=== PATIENT | male | born 2000 | race Caucasian/White ===

== ENCOUNTER 2024-09-19 19:38 | Emergency (ER) | payer SELFPAY ==
--- NOTE | 2024-09-19 19:50 | ED.WOUNDLAC ---
HPI - Wound/Laceration General Chief Complaint: Animal Bite Stated Complaint: Dog Bite on Left Thumb Time Seen by Provider: 09/19/24 19:48 Source: patient and family Mode of arrival: ambulatory Limitations: no limitations History of Present Illness HPI narrative: a 24-year-old male that presents with some puncture wounds to his left hand with abrasions to the right palm after his girlfriend's dog bit him. Patient is not up-to-date status is currently no bleeding. There is no numbness or tingling has good range of motion in his hands. Onset (ago): hour(s) Location: other Extremity Location: Right: hand ( Avulsions with puncture wound) Place: home Patient tetanus UTD: No Context: accidental Associated symptoms: none Related Data Allergies Allergy/AdvReac Type Severity Reaction Status Date / Time No Known Allergies Allergy Verified 09/19/24 20:07 Review of Systems Review of Systems: All systems reviewed & are unremarkable except as noted in HPI and below PMFSH Past Medical History Medical History Patient denies medical problems Exam Const: General: healthy appearing and no acute distress Nutritional Appearance: well nourished Orientation/consciousness: patient oriented x3 Neck: Neck: normal visual inspection, no lymphadenopathy and no meningeal signs Chest: Chest palpation & inspection: normal inspection of the chest Resp: Effort & Inspection: normal respiratory effort Auscultation: clear to auscultation bilaterally Cardio: Rate: regular rate Rhythm: regular rhythm Skin: Wounds: wounds noted Neuro: General: patient oriented x3, moves all extremities and no meningeal signs Course Course Emergency Course: puncture wounds to bilateral hands and puncture wound to the anterior left left thumb patient received Dermabond to the puncture wound to the left thumb area and triple antibiotic ointment was applied to wounds, and updated with his tetanus vaccine. Procedures Laceration Laceration 1: Date: 09/19/24 Time: 19:53 Site: upper extremity Side (If applicable): left and right Size (cm): 1 Description: linear and clean Depth: simple, single layer Pre-repair: irrigated extensively ====== Skin Level ====== Skin layer closed with: dermabond ====== Subcutaneous Layer ====== ====== Muscle Layer ====== ====== Tendon Layer ====== Critical Care Time Critical Care Time Critical Care Time: No Discharge Plan Discharge Clinical Impression: Animal bite, Laceration, Puncture wound Patient Disposition: Home, Self-Care Condition: Stable Instructions: Antibiotic Form, Animal Bite (ED), Laceration (ED), Puncture Wound (ED) Additional Instructions: can take Tylenol or Motrin as needed, can use Neosporin to affected areas daily x3 days and take antibiotics as prescribed. Patient Language: German Prescriptions: New amoxicillin-pot clavulanate [Augmentin] 500-125 mg tablet 1 tablet PO TID Qty: 30 0RF Follow-up/Referrals: UNKNOWN,DOCTOR [Primary Care Provider] - Time of Disposition: 20:10
[2024-09-19 19:52] VITALS: BP 159/89; PULSE 74; RESP 18; TEMP 36.8; O2SAT 95
--- OUTSIDE RECORDS SUMMARY | 2024-09-19 20:07 | XMS_ITS | Encounter Summary ---
Author Organization [employer] Address [address] [place] [address] Care Team Providers Care Operating Room Tech Name Role Phone Unavailable Primary Care Provider Unavailabl e Encounter Details Date Type Department Care Team (Latest Contact Info) Description 11/20/2000 Outpatient Historical HIS PATIENT IN A BED Christina Chowdhury MD [address] [place] [phone] Osei Pennington MD [address] [facility] [address] [place] [phone] Other musculoskeletal symptoms referable to limbs(729.89) (Primary Dx) 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
--- OUTSIDE RECORDS SUMMARY | 2024-09-19 20:07 | XMS_ITS | Clinical Summary ---
Author Organization [facility] Address [facility] [place] [address] Care Team Providers Care Mixing Pan Tender Name Role Phone Osei Cancino MD Primary Care Provider +1- [phone] Allergies Active Allergy Reactions Criticality Noted Date Comments Penicillins Hives 11/08/2017 Prednisone Hives 11/08/2017 Ketorolac Tromethamine Hives 11/08/2017 Medications ibuprofen 800 MG tablet Take 1 tablet (800 mg total) by mouth every 8 (eight) hours as needed for Pain. 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 Gender Identity Not on file Sexual Orientation Not on file Last Filed Vital Signs Vital Sign Reading Time Taken Comments Blood Pressure 147/85 11/08/2017 9:52 PM CDT Pulse 107 11/08/2017 9:52 PM CDT Temperature 37.2 C (99 F) 11/08/2017 9:52 PM CDT Respiratory Rate 16 11/08/2017 9:52 PM CDT Oxygen Saturation 99% 11/08/2017 9:52 PM CDT Inhaled Oxygen Concentration - - Weight 116 kg (255 lb 11.7 oz) 11/08/2017 9:52 P M CDT Height 190.5 cm (6' 3 ) 11/08/2017 9:52 PM CDT Body Mass Index 31.96 11/08/2017 9:52 PM CDT Plan of Treatment Health Maintenance Due Date Last Done Comments Annual Physical 2002 HPV Vaccines (1 - Male 3-dos e series) 2014 Hepatitis C 2017 DTaP, Tdap and Td Vaccines ( 1 - Tdap) 2018 Hepatitis B Vaccines (1 of 3 - 19+ 3-dose series) 2018 COVID-19 Vaccine ( - 2023-2 5 season) 2024 Influenza Adult (#1) 2024 Meningococcal B Vaccine Aged Out No l onger eligible based on patient's age to complete this topic Meningococcal Vaccine Aged Out No adrian jovany eligible based on patient's age to complete this topic Pneumococcal Vaccine: Pediat rics (0 to 5 Years) and At-Risk Patients (6 to 64 Years) Aged Out No longer eligible b ased on patient's age to complete this topic RSV Immunizations Under 20 Months Aged Out No longer eligible based on patient's age to complete this topic Insurance [place] [address] Care Teams Mixing Pan Tender Relationship Specialty Start Date End Date Osei Cancino MD [address] [place] [id number] PCP - General INTERNAL MEDICINE 11/09/17
--- OUTSIDE RECORDS SUMMARY | 2024-09-19 20:07 | XMS_ITS | Clinical Summary ---
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
--- OUTSIDE RECORDS SUMMARY | 2024-09-19 20:07 | XMS_ITS | Patient Health Summary ---
Author Organization [facility] Address [address] [place] [address] Care Team Providers Care Neuropsychology Director Name Role Phone Unavailable Primary Care Provider Unavailabl e Note from [facility],non-owned Affiliates and Associated Physician Practices is amultiple site organization consisting of ambulatory clinics and hospital sitesin [place], [place], [place] and [place]. This disclosure is being madepursuant to the Care Everywhere program and may not contain all information available regarding this patient. Last updated 18.[facility] Social History Tobacco Use Types Packs/Day Years Used Date Smoking Tobacco: Never Assessed Sex and Gender Information Value Date Recorded Sex Assigned at Not on file Gender Identity Not on file Sexual Orientation Not on file Procedures * GROSS + MICRO EXAM(Performed 02/25/2004) * GROSS + MICRO EXAM(Performed 06/06/2001) Results * GROSS + MICRO EXAM (02/25/2004 10:45 AM CDT) Only the most recent of2 resultswithin the time period is included. Result CASE NUMBER [id number] [facility] PATH REPORT Comment: ORDERING PHYSICIAN MAO ORELLANA SPECIMEN TYPE Esophagus CLINICAL HISTORY The patient is a 3-year-old boy with a history of abdominal pain who underwent upper endoscopy. GROSS DESCRIPTION The specimen, labeled with the patient's name and esophagus, is received fixed in formalin for gross and microscopic examination and consists of two 2 mm soft, lester-pink tissue fragments submitted in toto as A . MICROSCOPIC DESCRIPTION 3 H/E Sections show fragments of esophageal mucosa. The epithelium shows spongiosis, basal hyperplasia, elongation of papillae, and a mild increase in intraepithelial lymphocytes. The lamina propria contains lymphoid aggregates. (DSB/pg) DIAGNOSIS DIAGNOSIS ESOPHAGUS, BIOPSY - ESOPHAGITIS, MILD. COMMENT The previous esophagus biopsy ([id number]) has been reviewed. The current biopsy shows no significant change in severity of inflammation. The performance characteristics of all immunohistochemical and indirect immunofluorescence stains (if any) cited in this report were determined by the Histopathology Laboratory of [facility] (immunohistochemistry) or the Histology Laboratory of [facility] (indirect immunofluorescence) in compliance with CLIA `88 regulations. Some of these tests rely on the use of analyte-specific reagents and are subject to specific labeling requirements by the FDA. Such tests were developed by the [facility] Laboratory of [facility] or the Histology Laboratory of [facility] and have not been cleared or approved by the FDA. The FDA has determined that such clearance or approval is not necessary. These tests are used for clinical purposes and should not be regarded as investigational or for research. This case has been personally reviewed and interpreted by the attending (teaching) pathologist. Public Health Advisor JEANMARIE PRUITT PATHOLOGIST Elizabeth Reyes M.D. ELECTRONICALLY [facility] MISCELLANEOUS SAMPLES / Unknown 02/25/2004 10:45 AM CDT 02/25/2004 12:01 PM CDT Historical Provider LAB - PATHOLOGY/C YTOLOGY ORDERABLES [facility] PATH REPORT
--- OUTSIDE RECORDS SUMMARY | 2024-09-19 20:07 | XMS_ITS | Encounter Summary ---
Author Organization [facility] Address [address] [place] [address] Care Team Providers Care Merchandise Deliverer Name Role Phone Unavailable Primary Care Provider Unavailabl e Encounter Details Date Type Department Care Team (Late st Contact Info) Description 11/20/2000 Outpatient Historical [facility] Department of Peds at [address] [address] Christina Chowdhury MD 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
--- OUTSIDE RECORDS SUMMARY | 2024-09-19 20:07 | XMS_ITS | Referral Summary ---
Author Organization [facility] Address [address] [facility] [place] [address] Care Team Providers Care Aviation Consultant Name Role Phone Unavailable Primary Care Provider Unavailabl e Source Comments [facility],non-owned Affiliates and Associated Physician Practices is amultiple site organization consisting of ambulatory clinics and hospital sitesin [place], [place], [place] and [place]. This disclosure is being madepursuant to the Care Everywhere program and may not contain all information available regarding this patient. Last updated 18.[facility] Social History Tobacco Use Types Packs/Day Years Used Date Smoking Tobacco: Never Assessed Sex and Gender Information Value Date Recorded Sex Assigned at Not on file Gender Identity Not on file Sexual Orientation Not on file Plan of Treatment Not on file
--- OUTSIDE RECORDS SUMMARY | 2024-09-19 20:07 | XMS_ITS | Encounter Summary ---
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
--- OUTSIDE RECORDS SUMMARY | 2024-09-19 20:07 | XMS_ITS | Encounter Summary ---
Author Organization [employer] Address 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
--- OUTSIDE RECORDS SUMMARY | 2024-09-19 20:07 | XMS_ITS | Clinical Summary ---
Author Organization [facility] Address [address] [place] [address] Care Team Providers Care Manager Rfid Name Role Phone Unavailable Primary Care Provider Unavailabl e Source Comments [facility],non-owned Affiliates and Associated Physician Practices is amultiple site organization consisting of ambulatory clinics and hospital sitesin [place], [place]. This disclosure is being madepursuant to the Care Everywhere program and may not contain all information available regarding this patient. Last updated 18.[facility] Social History Tobacco Use Types Packs/Day Years Used Date Smoking Tobacco: Never Assessed Sex and Gender Information Value Date Recorded Sex Assigned at Not on file Gender Identity Not on file Sexual Orientation Not on file Plan of Treatment Health Maintenance Due Date Last Done Comments HIV SCREENING 2014 HPV VACCINE (1 - Male 3-dose series) 2014 HEPATITIS C SCREENING 06/28/2017 DTAP/TDAP/TD VACCINES (1 - Tdap) 2018 HEPATITIS B VACCINE (1 of 3 - 19+ 3-dose series) 2018 COVID-19 VACCINE (1 - 2023-2 5 season) 2024 INFLUENZA VACCINE (#1) 2024 DEPRESSION SCREENING 08/12/2024 ZOSTER VACCINE (1 of 2) 2049 HIB VACCINE Aged Out No longer eligi ble based on patient's age to complete this topic MENINGOCOCCAL (Group B) VACCINE Aged Out No longer eligible based on patient's age to complete this topic MENINGOCOCCAL VACCINE Aged Out No adrian jovany eligible based on patient's age to complete this topic PNEUMOCOCCAL VACCINE Aged Out No long er eligible based on patient's age to complete this topic
[2024-09-19] MEDS: TETANUS,DIPHTHERIA,AC PERTUSSIS ADULT 0.5 ML (ADACEL) IM (20:08)
[2024-09-19] MEDS: AMOXICILLIN/CLAVULANATE K 875-125 MG TAB 1 TABLET PO (20:08)
--- NOTE | 2024-09-19 20:29 | PC.NURSE ---
areas to both hands cleased with would cleanser and than FRIDA applied with bandaid and pressure drsing to left thumb
[2024-09-19 20:40] VITALS: BP 124/78; PULSE 78; RESP 18; O2SAT 99
== END 2024-09-19 20:40 | disposition home or self-care (01) ==
PROVIDERS: Emergency Provider Emergency Medicine
DX: S61.452A Open bite of left hand, initial encounter (principal); W54.0XXA Bitten by dog, initial encounter; Z23 Encounter for immunization
CPT/HCPCS: 12001; 90471; 90715; 99283; A9270

== ENCOUNTER 2024-12-15 12:54 | Emergency (ER) | payer OTHER, SELFPAY ==
--- NOTE | ~2024-12-15 | XR_ITS ---
XR chest 2V Ordering provider: Meño Colón MD History: 24 years Male with . Chest pain X 1 day . Comparison: None. FINDINGS: MEDIASTINUM: The cardiac silhouette is not enlarged. LUNGS: No infiltrates, effusions or pneumothorax. OTHER: No free air under the diaphragm. IMPRESSION: No acute cardiopulmonary pathology. Reviewed, dictated and finalized at location A.
[2024-12-15 12:54] VITALS: BP 141/98; PULSE 92; RESP 16; TEMP 36; O2SAT 97
--- NOTE | 2024-12-15 13:01 | ED_ITS ---
HPI - Chest Pain General Chief Complaint: Chest Pain Stated Complaint: chest pain Time Seen by Provider: 12/15/24 13:01 Source: patient Mode of arrival: ambulatory Limitations: no limitations History of Present Illness HPI narrative: Patient is a 24-year-old male with left-sided upper chest pain on and off since yesterday. It happened throughout the night while he was resting and then again started up again this afternoon. No shortness of breath. No radiation. No associated nausea. He did have some dizziness. MD complaint: chest pain Pertinent past history: other ( None) Onset (ago): day(s) ( 2) Timing of current episode: episodic Prior episodes: No Onset: during rest Pain location: substernal and left chest Pain radiation: none Severity: mild Pain scale (0-10): 4 Quality: sharp Relieving factors: nothing Exacerbating factors: nothing Context: other ( patient having episodes of chest pain left-sided since yesterday.) Associated symptoms: other ( dizziness) Treatment prior to arrival: none Risk Factors Coronary artery disease risk factors: none Thoracic aortic dissection risk factors: none Related Data Allergies Allergy/AdvReac Type Severity Reaction Status Date / Time ketorolac (From Toradol) Allergy Mild Unknown Verified 12/15/24 13:21 Penicillins Allergy Mild Unknown Verified 12/15/24 13:21 prednisolone Allergy Mild Unknown Verified 12/15/24 13:21 Review of Systems 2 Review of Systems: All systems reviewed & are unremarkable except as noted in HPI and below Constitutional: Constitutional: Reports no additional constitutional complaints Eyes: Eyes: Reports no additional eye complaints ENT: Reports system reviewed and no additional complaints, except as documented Cardiovascular: Cardiovascular: Reports no additional cardiovascular complaints Respiratory: Respiratory: Reports no additional respiratory complaints Gastrointestinal: Gastrointestinal: Reports no additional gastrointestinal complaints Genitourinary: Genitourinary: Reports no additional male genitourinary complaints Musculoskeletal: Musculoskeletal: Reports no additional musculoskeletal complaints Integumentary/Breasts: Skin/Breast: Reports system reviewed and no additional complaints, except as docu Neurologic: Reports system reviewed and no additional complaints, except as documented Psychiatric: Psychiatric: Reports no additional psychiatric complaints Endocrine: Endocrine: Reports no additional endocrine complaints Hematologic/Lymphatic: Hematologic/Lymphatic: Reports no additional hematologic/lymphatic complaints Allergic/Immunologic: Allergic/Immunologic: Reports no additional allergic/immunologic complaints [facility] Past Medical History Medical History Patient denies medical problems Exam 2 Const: General: healthy appearing Nutritional Appearance: well nourished Orientation/consciousness: patient oriented x3 HENMT: Head: normal to inspection Ears: external ears normal F sendy/Nose/Sinus: Normal external nose present Eyes: Conjunctivae: conjunctivae normal Pupils: Equal, round and reactive pupils present EOM: EOMs intact bilaterally Neck: Neck: normal visual inspection Chest: Chest palpation & inspection: normal inspection of the chest Other: tender left anterior chest wall to palpation at the costochondral margins 2 and 3 typically for this patient and reproducible chest pain Resp: Effort & Inspection: normal respiratory effort and not labored A uscultation: clear to auscultation bilaterally and no crackles Cardio: Rate: regular rate Rhythm: regular rhythm Heart sounds: no murmurs GI: Inspection: non-distended GI Palp: Yes Soft to palpation and No Tenderness to palpation present (GI) Auscultation: normal bowel sounds : General: Yes bladder normal to palpation Back/Spine/Pelvis: Back: no CVA tenderness Skin: General skin exam: normal color Rashes: no rashes Wounds: no wounds Neuro: General: patient oriented x3 Cranial nerves: Yes Nystagmus not present Speech: normal speech Extrem: General: normal to inspection Psych: Mental Status: mental status grossly normal Affect: normal affect Attitude: cooperative Course Vital Signs Vital signs: Vital Signs Temperature 36.0 C L 12/15/24 12:54 Pulse Rate 92 12/15/24 12:54 Respiratory Rate 16 12/15/24 12:54 Blood Pressure 141/98 H 12/15/24 12:54 Pulse Oximetry 97 12/15/24 12:54 Oxygen Delivery Room Air 12/15/24 12:54 Temperature 36.0 C L 12/15/24 12:54 Pulse Rate 93 12/15/24 13:09 Respiratory Rate 16 12/15/24 12:54 Blood Pressure 141/98 H 12/15/24 12:54 Pulse Oximetry 97 12/15/24 12:54 Oxygen Delivery Room Air 12/15/24 13:02 MDM - Chest Pain MDM Narrative Medical decision making narrative: patient is a 24-year-old male with chest pain. Will do a cardiac workup at this time. pain is atypical in nature and reproducible. Lab Data Attestation: I reviewed the patient's lab results. 12/15/24 13:16 12/15/24 13:16 Labs: Lab Results 12/15/24 Range/Units 13:16 WBC 5.5 (4.8-10.8) K/mm3 RBC 5.92 (4.70-6.10) M/mm3 Hgb 17.5 (14.0-18.0) g/dL Hct 50.1 (40.0-54.0) % MCV 84.6 (78.0-102.0) fL MCH 29.6 (27.0-31.0) pg MCHC 34.9 (32-36) g/dL RDW 12.0 (11.6-14.4) % Plt Count 188 (150-420) K/mm3 MPV 10.0 (8.7-11.0) fl Immature Gran % (Auto) 0.4 H (0.0-0.0) % Neut % (Auto) 57.2 (50.0-70.0) % Lymph % (Auto) 31.0 (18.0-42.0) % [place] % (Auto) 5.1 (2.0-11.0) % Eos % (Auto) 5.6 (1.0-6.0) % Baso % (Auto) 0.7 (0.0-1.0) % Lymph # (Auto) 1.70 (1.10-4.50) K/mm3 [place] # (Auto) 0.28 (0.10-0.90) K/mm3 Eos # (Auto) 0.31 (0.02-0.50) K/mm3 Baso # (Auto) 0.04 (0.00-0.10) K/mm3 Abs Immat Gran (auto) 0.02 H (0.00-0.00) K/mm3 Absolute Neuts (auto) 3.14 (1.70-7.20) K/mm3 Absolute Nucleated RBC 0.00 (0.00-0.00) K/mm3 Nucleated RBC % 0.0 (0-0.0) % PT 10.9 (9.50-12.1) Seconds INR 1.0 APTT 30.2 (23.9-30.70) Sec D-Dimer 0.19 (0.19-0.50) mg/L Sodium 138 (136-145) mmol/L Potassium 3.6 (3.5-5.1) mmol/L Chloride 102 (98-108) mmol/L Carbon Dioxide 28 (21-32) mmol/L Anion Gap 8 (4-12) mmol/L BUN 13 (7-18) mg/dL Creatinine 1.22 (0.70-1.30) mg/dL Estim Creat Clear Calc 112 ml/min Estimated GFR > 60 (59 - ) Glucose 125 H (70-99) mg/dL Calculated Osmolality 287 (285-295) mOsm/kg Calcium 8.7 (8.5-10.1) mg/dL Total Bilirubin 1.0 (0.00-1.00) mg/dL AST 16 (15-37) U/L ALT 44 (16-63) U/L Alkaline Phosphatase 109 (46-116) U/L Troponin I 5.0 (0.00-60.4) ng/L NT-Pro-B Natriuret Pep < 11 (0-125) pg/mL Total Protein 6.8 (6.4-8.2) g/dL Albumin 3.7 (3.4-5.0) g/dL Lipase 41 (16-77) U/L Imaging Data Attestation: I personally reviewed and interpreted this imaging study as follows: Radiologist's impression: Chest x-ray is negative for acute process ECG Data EKG #1: Attestation: I personally reviewed and interpreted this ECG as follows: ECG completion date: 12/15/24 ECG completion time: 13:43 EKG Interpretation: normal rate, sinus rhythm, non-specific ST changes ( T-wave inversions lead 3 and AVF (inferior)), normal QRS, normal QT and NL axis Discharge Plan Discharge Clinical Impression: Atypical chest pain, Acute costochondritis Patient Disposition: Home Condition: Stable Instructions: Costochondritis (ED) Additional Instructions: please follow-up with primary doctor in the next week. Showed the EKG to the primary doctor and they may consider further cardiac outpatient workup. At this time however, it appears that this is musculoskeletal in nature. Patient Language: Swedish Prescriptions: No Action amoxicillin-pot clavulanate [Augmentin] 500-125 mg tablet 1 tablet PO TID Qty: 30 0RF Follow-up/Referrals: Jovan Chang MD [Primary Care Provider] - Time of Disposition: 14:13
--- NOTE | 2024-12-15 13:08 | ECG_ITS ---
Test Date: 2024-12-15 13:04:42 Measurements Intervals [place] Rate: 85 P: 86 NE: 167 QRS: 85 QRSD: 102 T: -28 QT: 349 QTc: 417 Interpretive Statements SINUS RHYTHM NONSPECIFIC ST AND T-WAVE ABNORMALITY No previous ECG available for comparison Electronically Signed On 12-15-2024 14:15:05 CDT by Adonis Smyth M.D.
[2024-12-15 13:09] VITALS: PULSE 93
--- OUTSIDE RECORDS SUMMARY | 2024-12-15 13:12 | XMS_ITS | Clinical Summary ---
Author Organization [facility] [address] Address [address] [place] [address] Care Team Providers Care Outboard Motors Experimental Mechanic Name Role Phone Franco Galloway MD Primary Care Provi giles Allergies Active Allergy Reactions Criticality Noted Date Comments Penicillins Hives Medium 07/01/2022 Prednisone Hives Medium 11/08/2017 Ketorolac Vomiting Low 07/01/2022 Medications ibuprofen (ADVIL,MOTRIN) 800 mg tablet Take 1 tablet (800 mg total) by mouth 3 (three) times a day as needed for pain 20 tablet 07/02/2022 Active dexmethylphenid ate XR (FOCALIN XR) 30 mg 24 hr capsule Take 1 capsule (30 mg total) by mouth daily 30 capsule 03/27/2023 Active sertraline (ZOLOFT) 100 mg tabletIndicatio ns:Obsessive-Co mpulsive Disorder Take 1 tablet (100 mg total) by mouth daily 90 tablet 3 03/27/2023 Active cariprazine (Vraylar) 3 mg capsule capsuleIndicati ons:Depression associated with Bipolar Disorder Take 1 capsule (3 mg total) by mouth daily 30 capsule 1 03/27/2023 Active Active Problems Problem Noted Date Diagnosed Date 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 Continue with spec wear, still interested in toric IOLs, awaiting approval for surgery. Hyperopia of both eyes with astigmatism 05/29/20 19 Assessment & Plan (05/29/2019 12:23 PM CDT): Significant astigmatism ou. Excellent vision with spec rx, minimal change in refraction compared to current spec rx. Can continue real time analyst spec wear with current rx or updated rx given today. Remainder of exam WNL. Follow up as needed for intraocular lens (IOL) procedure. Immunizations Immunization Administration Dates Next Due DTP 11/06/2000,02/01/2000,1999 ,1999 DTaP 03/15/2005 HPV, Quadrivalent 10/20/2013 HPV9 04/16/2017 Hep A, Pediatric 04/16/2017 Hep B / HiB 07/15/2000,1999,1999 IPV 03/15/2005,07/15/2000,1999 ,1999 Influenza, Unspecified 01/30/2023(Deferr ed: Patient Refused),01/30/2023(Deferred: Patient Refused),11/27/2022(Deferred: Patient Refused),11/27/2022(Deferred: Patient Refused),10/11/2022(Deferred: Patient Refused) MMR 03/15/2005,11/06/2000 Meningococcal MCV4P (Menactra) 04/16/2017 Pneumococcal Conjugate 7-Valent 07/25/2000,06/07,02/01/2000 Varicella 10/20/2013,07/15/2000 Surgical History Surgery Date Site/Laterality Comments APPENDECTOMY Medical History Medical History Date Comments ADHD (attention deficit hyperactivity disorder) OCD (obsessive compulsive disorder) Depression Family History Medical History Relation Name Comments Sleep apnea Brother Sleep apnea Father No Known Problems Mother No Known Problems Sister Relation Name Status Comments Brother Alive Father Alive Mother Alive Sister Alive Social History Tobacco Use Types Packs/Day Years Used Date Smoking Tobacco: Never Passive Smoke Exposure: Never Smokeless Tobacco: Never Tobacco Cessation:Counseling Given: Not Answered Alcohol Use Standard Drinks/Week Comments Not Currently 0 (1 standard drink = 0.6 oz pur e alcohol) PHQ-2 Answer Date Recorded PHQ-2 Total Score (If total score is 3 or more points, staff should administer the PHQ-9) 0 10/11/2022 Personal Safety Answer Date Recorded Getting School Help Needed Not on file 12/10 Sex and Gender Information Value Date Recorded Sex Assigned at Not on file 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 Gender Identity Not on file Sexual Orientation Not on file Obstetrics History Last Filed Vital Signs Vital Sign Reading Time Taken Comments Blood Pressure 138/76 11/28/2022 11:30 PM CDT Pulse 86 11/28/2022 11:30 PM CDT Temperature 36.6 C (97.8 F) 11/28/2022 8:55 PM CDT Respiratory Rate 16 11/28/2022 11:30 PM CDT Oxygen Saturation 96% 11/28/2022 11:30 PM CDT Inhaled Oxygen Concentration - - Weight 105.7 kg (233 lb) 03/27/2023 2:40 PM CDT Height 190.5 cm (6' 3 ) 03/27/2023 2:40 PM CDT Body Mass Index 29.12 03/27/2023 2:40 PM CDT Plan of Treatment Health Maintenance Due Date Last Done Comments DTaP/Tdap/Td Vaccine (6 - Tdap) 2010 03/15/2005, 11/06/2000, 02/01/2000, Additional history exists Depression Screening 10/12/2023 10/11/2022, 09/27/19 23 Regular Well Visit/Exam 18-64 10/12/2023 10/11/2022 Covid-19 Vaccine ( season) 2024 08/22/2021 Influenza Vaccine (Season Ended) 2025 Hepatitis B Screening Completed 07/15/2000 , 1999, 1999 Pneumococcal vaccine <65 Aged Out 000, 06/07/2000, 02/01/2000 No longer eligible based on patient's age to complete this topic Varicella Vaccines Completed 10/20/2013, 07/15/2000 HPV Vaccines Completed 04/16/2017, 10/20/2013 Hepatitis C Screening Completed 12/04/2022 Procedures Procedure Name Priority Date/Time Associated Diagnosis Comments HEPATITIS PANEL, ACUTE Routine 12/04/2022 5:49 PM CDT Exposure to sexually transmitted disease (STD) from Last 3 Months or Most Recently Relevant to Health Maintenance Results * Hepatitis panel, acute (12/04/2022 5:49 PM CDT) Hep A IgM Nonreactive Nonreactive [facility] Comment: Interpretive Data: If Hep A IgM Ab is reported as Equivocal, a new sample should be drawn in two weeks for testing. Current interpretive data was last revised on 19. Hep B core IgM Nonreactive Nonreactive [facility] Comment: Interpretive Data If HepB Core IgM Ab is reported as Equivocal, a new sample should be drawn in two weeks for testing. Current interpretive data was last revised on 19. Hep C Ab Nonreactive Nonreactive [facility] Comment: Interpretive Data Nonreactive: Antibodies to HCV not detected. Does NOT exclude the possibility of recent exposure to HCV. Equivocal: Equivocal for HCV antibodies. Supplemental molecular testing will be automatically performed to determine infection status in accordance with current CDC screening recommendations. Reactive: Positive for HCV antibodies. This may represent current or past HCV infection. Supplemental molecular testing will be automatically performed to determine current infection status in accordance with current CDC screening recommendations. Interpretive data was last revised on 2019. HepBsAg Nonreactive Nonreactive [facility] Blood 12/04/2022 5:49 PM CDT 12/04/2022 8:29 PM CDT us Franco Galloway MD LAB MICROBIOLOGY - GENERAL ORDERABLES Final Result [facility] [address] [facility] [facility] Department [place] [address] from Last 3 Months or Most Recently Relevant to Health Maintenance Insurance [employer] [place] [address] [place] [address] [facility] MEDICARE Care Teams Outboard Motors Experimental Mechanic Relationship Specialty Start Date End Date Franco Galloway MD [address] [address] PCP - General Family Medicine 09/24/22
--- OUTSIDE RECORDS SUMMARY | 2024-12-15 13:12 | XMS_ITS | Encounter Summary ---
Author Organization [facility] Address 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
--- OUTSIDE RECORDS SUMMARY | 2024-12-15 13:12 | XMS_ITS | Clinical Summary ---
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 Gender Identity Not on file Sexual Orientation [...] - 19+ 3-dose series) 2018 COVID-19 Vaccine (1 - 2023-2 5 season) 2024 Meningococcal B Vaccine Aged Out No l onger eligible based on patient's age to complete this topic Meningococcal Vaccine Aged Out No adrian jovany eligible based on patient's age to complete this topic Pneumococcal Vaccine: Pediat rics (0 to 5 Years) and At-Risk Patients (6 to 49 Years) Aged Out No longer eligible b ased on patient's age to complete this topic RSV Immunizations Under 20 Months Aged Out No longer eligible based on patient's age to complete this topic Insurance MEDICAID Care Teams Flanging Roll Operator Relationship Specialty Start Date End Date Osei Cancino MD [address] [place] [id number] PCP - General INTERNAL MEDICINE 11/09/17
--- OUTSIDE RECORDS SUMMARY | 2024-12-15 13:12 | XMS_ITS | Clinical Summary ---
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
--- OUTSIDE RECORDS SUMMARY | 2024-12-15 13:12 | XMS_ITS | Encounter Summary ---
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
--- OUTSIDE RECORDS SUMMARY | 2024-12-15 13:12 | XMS_ITS | Encounter Summary ---
Author Organization [facility] Address 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
--- OUTSIDE RECORDS SUMMARY | 2024-12-15 13:12 | XMS_ITS | Referral Summary ---
Author Organization [facility] [address] Address [address] [place] [address] Care Team Providers Care Recruitment Consultant Name Role Phone Franco Galloway MD Primary [...] compared to current spec rx. 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 Current interpretive data was last revised on 19. Hep B core IgM Nonreactive Nonreactive [facility] Comment: Interpretive Data If HepB Core IgM Ab is reported as Equivocal, a new sample should be drawn in two weeks for testing. Current interpretive data was last revised on 19. Hep C Ab Nonreactive Nonreactive [facility] Comment: Interpretive Data Nonreactive: Antibodies to HCV [...] last revised on 2019. HepBsAg Nonreactive Nonreactive [facility] Blood 12/04/2022 5:49 PM CDT 12/04/2022 8:29 PM CDT us Franco Galloway MD LAB MICROBIOLOGY - GENERAL ORDERABLES Final Result [facility] [address] [facility] Department [place] [address] from Last 3 Months or Most Recently Relevant to [place] [address] MEDICARE [facility] MEDICARE Care Teams Recruitment Consultant Relationship Specialty Start Date End Date Franco Galloway MD [address] [place] [address] PCP - General Family Medicine 09/24/22
--- OUTSIDE RECORDS SUMMARY | 2024-12-15 13:12 | XMS_ITS | Clinical Summary ---
Author Organization [facility] Address [address] [place] [address] Care Team Providers Care Tie Layer Name Role Phone Unavailable Primary Care Provider Unavailabl e Source Comments [facility]non-owned Affiliates and Associated Physician Practices is amultiple site organization consisting of ambulatory clinics and hospital sitesin [place], [place], [place] and [place]. This disclosure is being madepursuant to the Care Everywhere program and may not contain all information available regarding this patient. Last updated 18.[facility] 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:40 AM UNIVERSITY ARCHIVIST Gender Identity Not on file Sexual Orientation Not on file Plan of Treatment Health Maintenance Due Date Last Done Comments HIV SCREENING 2014 HPV VACCINE (1 - Male 3-dose series) 2014 HEPATITIS C SCREENING 06/28/2017 DTAP/TDAP/TD VACCINES (1 - Tdap) 2018 HEPATITIS B VACCINE (1 of 3 - 19+ 3-dose series) 2018 COVID-19 VACCINE (1 - 2023-2 5 season) 2024 DEPRESSION SCREENING 08/12/2024 INFLUENZA VACCINE (Season Ended) 2025 ZOSTER VACCINE (1 of 2) 2049 HIB VACCINE Aged Out No longer eligi ble based on patient's age to complete this topic MENINGOCOCCAL (Group B) VACC INE SHARED DECISION-MAKING Aged Out No longer eligibl e based on patient's age to complete this topic MENINGOCOCCAL GROUPS A/C/Y/W VACCINE Aged Out No longer eligible b ased on patient's age to complete this topic PNEUMOCOCCAL VACCINE Aged Out No long er eligible based on patient's age to complete this topic
--- OUTSIDE RECORDS SUMMARY | 2024-12-15 13:12 | XMS_ITS | Encounter Summary ---
Author Organization [employer] Address [address] [place] [address] Care Team Providers Care Sounding Device Operator Name Role Phone Unavailable Primary Care Provider Unavailabl e Encounter Details Date Type Department Care Team (Latest Contact Info) Description 11/20/2000 Outpatient Historical HIS PATIENT IN A BED Christina Chowdhury MD [address] [place] [address] Osei Pennington MD [address] [facility] [address] [place] [phone] Other musculoskeletal symptoms referable to limbs(729.89) (Primary Dx) 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
[2024-12-15 13:22] LABS: Basophils Absolute Auto 0.04 K/mm3 (0.00-0.10); Basophils Percent Auto 0.7 % (0.0-1.0); Eosinophils Absolute Auto 0.31 K/mm3 (0.02-0.50); Eosinophils Percent Auto 5.6 % (1.0-6.0); Hematocrit 50.1 % (40.0-54.0); Hemoglobin 17.5 g/dL (14.0-18.0); Immature Granulocyte Absolute 0.02 K/mm3 (0.00-0.00); Immature Granulocyte Percent A 0.4 % (0.0-0.0); Mean Corpuscular HGB Conc 34.9 g/dL (32-36); Mean Corpuscular Hemoglobin 29.6 pg (27.0-31.0); Mean Corpuscular Volume 84.6 fL (78.0-102.0); Monocytes Absolute Auto 0.28 K/mm3 (0.10-0.90); Monocytes Percent Auto 5.1 % (2.0-11.0); Neutrophils Absolute Auto 3.14 K/mm3 (1.70-7.20); Neutrophils Percent Auto 57.2 % (50.0-70.0); Platelet Count Result 188 K/mm3 (150-420); Red Blood Count 5.92 M/mm3 (4.70-6.10); White Blood Count 5.5 K/mm3 (4.8-10.8)
[2024-12-15 13:37] LABS: D Dimer 0.19 mg/L (0.19-0.50); Partial Thromboplastin Time 30.2 Sec (23.9-30.70); Prothrombin Time 10.9 Seconds (9.50-12.1)
[2024-12-15 13:39] VITALS: BP 125/79; PULSE 86; RESP 18; O2SAT 95
[2024-12-15 13:45] LABS: Alanine Aminotransferase 44 U/L (16-63); Albumin Level 3.7 g/dL (3.4-5.0); Alkaline Phosphatase 109 U/L (46-116); Anion Gap 8 mmol/L (4-12); Aspartate Amino Transferase 16 U/L (15-37); Blood Urea Nitrogen 13 mg/dL (7-18); Calcium 8.7 mg/dL (8.5-10.1); Carbon Dioxide 28 mmol/L (21-32); Chloride 102 mmol/L (98-108); Estimated CRCL calculation 112 ml/min; Estimated Glomerular Filt Rate > 60; Glucose 125 mg/dL (70-99); Lipase 41 U/L (16-77); NT Pro B Type Natriuretic Pept < 11 pg/mL (0-125); Osmolality Calculated 287 mOsm/kg (285-295); Potassium 3.6 mmol/L (3.5-5.1); Sodium 138 mmol/L (136-145); Total Protein 6.8 g/dL (6.4-8.2)
[2024-12-15 13:46] VITALS: BP 115/86; PULSE 84; RESP 18; O2SAT 95
--- OUTSIDE RECORDS SUMMARY | 2024-12-15 13:46 | XMS_ITS | Encounter Summary ---
Author Organization [employer] Address [address] [place] [address] Care Team Providers Care Burglar Alarm Inspector Name Role Phone Unavailable Primary Care Provider Unavailabl e Encounter Details Date Type Department Care Team (Latest Contact Info) Description 11/20/2000 Outpatient Historical HIS PATIENT IN A BED Christina Chowdhury MD [address] [place] [address] Oesi Pennington MD [address] [facility] [address] [place] [phone] Other musculoskeletal symptoms referable to limbs(729.89) (Primary Dx) 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:[address] COMMANDER Gender Identity Not on file Sexual Orientation Not on file documented as of this encounter Plan of Treatment Not on file documented as of this encounter Visit Diagnoses Diagnosis Other musculoskeletal symptoms referable to limbs(729.89)- Primary Other musculoskeletal symptoms referable to limbs documented in this encounter
--- OUTSIDE RECORDS SUMMARY | 2024-12-15 13:46 | XMS_ITS | Encounter Summary ---
Author Organization [employer] Address 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
--- OUTSIDE RECORDS SUMMARY | 2024-12-15 13:46 | XMS_ITS | Encounter Summary ---
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
--- OUTSIDE RECORDS SUMMARY | 2024-12-15 13:46 | XMS_ITS | Clinical Summary ---
Author Organization [facility] [address] Address [address] [address] Care Team Providers Care Proctologist Name Role Phone Franco Galloway MD Primary [...] compared to current spec rx. 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 Current interpretive data was last revised on 19. Hep B core IgM Nonreactive Nonreactive [facility] Comment: Interpretive Data If HepB Core IgM Ab is reported as Equivocal, a new sample should be drawn in two weeks for testing. Current interpretive data was last revised on 19. Hep C Ab Nonreactive Nonreactive [facility] Comment: Interpretive Data Nonreactive: Antibodies to HCV [...] last revised on 2019. HepBsAg Nonreactive Nonreactive [facility] Blood 12/04/2022 5:49 PM CDT 12/04/2022 8:29 PM CDT us Franco Galloway MD LAB MICROBIOLOGY - GENERAL ORDERABLES Final Result [facility] [address] [facility] [place] [address] from Last 3 Months or Most Recently Relevant to Health Maintenance Insurance [employer] [place]IC[place] [address] [facility] MEDICARE Care Teams Proctologist Relationship Specialty Start Date End Date Franco Galloway MD [address] [address] PCP - General Family Medicine 09/24/22
--- OUTSIDE RECORDS SUMMARY | 2024-12-15 13:46 | XMS_ITS | Clinical Summary ---
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
--- OUTSIDE RECORDS SUMMARY | 2024-12-15 13:46 | XMS_ITS | Referral Summary ---
Author Organization [facility] [address] Address [address] [place] [address] Care Team Providers Care Core Analyst Name Role Phone Franco Galloway MD Primary [...] to current spec rx. 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
--- OUTSIDE RECORDS SUMMARY | 2024-12-15 13:46 | XMS_ITS | Clinical Summary ---
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
--- OUTSIDE RECORDS SUMMARY | 2024-12-15 13:46 | XMS_ITS | Encounter Summary ---
Author Organization [facility] Address [address] [place] [address] Care Team Providers Care Clock Assembler Name Role Phone Unavailable Primary Care Provider Unavailabl e Encounter Details Date Type Department Care Team (Late st Contact Info) Description 11/20/2000 Outpatient Historical [facility] Department of Peds at [address] [address] Christina Chowdhury MD [facility] [place] [address] 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:20 AM STABLEHAND Gender Identity Not on file Sexual Orientation Not on file documented as of this encounter Plan of Treatment Not on file documented as of this encounter Visit Diagnoses Not on filedocumented in this encounter
--- OUTSIDE RECORDS SUMMARY | 2024-12-15 13:46 | XMS_ITS | Clinical Summary ---
Author Organization [facility] Address [address] [place] [address] Care Team Providers Care Contingents Supervisor Name Role Phone Unavailable Primary Care Provider Unavailabl e Source Comments [facility],non-owned Affiliates and Associated Physician Practices is amultiple site organization consisting of ambulatory clinics and hospital sitesin [place], [place], [place] and [place]. This disclosure is being madepursuant to the Care Everywhere program and may not contain all information available regarding this patient. 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
[2024-12-15 14:01] VITALS: BP 116/80; PULSE 77; RESP 21; O2SAT 96
== END 2024-12-15 14:25 | disposition home or self-care (01) ==
PROVIDERS: Emergency Provider Emergency Medicine; PCP Family Medicine
DX: M94.0 Chondrocostal junction syndrome [Tietze] (principal)
CPT/HCPCS: 36415; 71046; 80053; 83690; 83880; 84484; 85025; 85380; 85610; 85730; 93005; 99284

== ENCOUNTER 2024-12-29 09:35 | Emergency (ER) | payer OTHER, SELFPAY ==
[2024-12-29 09:35] VITALS: BP 155/87; PULSE 108; RESP 18; TEMP 35.2; O2SAT 100; O2SAT 96
--- OUTSIDE RECORDS SUMMARY | 2024-12-29 09:47 | XMS_ITS | Encounter Summary ---
Author Organization [employer] Address 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
--- OUTSIDE RECORDS SUMMARY | 2024-12-29 09:47 | XMS_ITS | Clinical Summary ---
Author Organization [facility] Address [facility] [place] [address] Care Team Providers Care Cafe Or Restaurant Manager Name Role Phone Osei Cancino MD Primary Care Provider +1- [phone] Allergies Active Allergy Reactions Criticality Noted Date [...] on file Legal Sex Male 8:56 PM RN IV THERAPY Gender Identity Not on file Sexual Orientation [...] complete this topic Insurance MEDICAID Care Teams Cafe Or Restaurant Manager Relationship Specialty Start Date End Date Osei Cancino MD [address] [place] [address] PCP - General INTERNAL MEDICINE 11/09/17
--- OUTSIDE RECORDS SUMMARY | 2024-12-29 09:47 | XMS_ITS | Encounter Summary ---
Author Organization [employer] Address [address] [place] [address] Care Team Providers Care Superintendent Transmission Name Role Phone Unavailable Primary Care Provider Unavailabl e Encounter Details Date Type Department Care Team (Latest Contact Info) Description 11/20/2000 Outpatient Historical HIS PATIENT IN A BED Christina Chowdhury MD [address] [place] [address] Osei Pennington MD [address] [facility] [address] [place] [phone] Other musculoskeletal symptoms referable to limbs(729.89) (Primary Dx) 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
--- OUTSIDE RECORDS SUMMARY | 2024-12-29 09:47 | XMS_ITS | Clinical Summary ---
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
--- OUTSIDE RECORDS SUMMARY | 2024-12-29 09:47 | XMS_ITS | Clinical Summary ---
Author Organization [facility] [address] Address [address] [place] [address] Care Team Providers Care Dental Associate Name Role Phone Franco Galloway MD Primary [...] compared to current spec rx. 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 Current interpretive data was last revised on 19. Hep B core IgM Nonreactive Nonreactive [facility] Comment: Interpretive Data If HepB Core IgM Ab is reported as Equivocal, a new sample should be drawn in two weeks for testing. Current interpretive data was last revised on 19. Hep C Ab Nonreactive Nonreactive [facility] Comment: Interpretive Data Nonreactive: Antibodies to HCV [...] last revised on 2019. HepBsAg Nonreactive Nonreactive [facility] Blood 12/04/2022 5:49 PM CDT 12/04/2022 8:29 PM CDT us Franco Galloway MD LAB MICROBIOLOGY - GENERAL ORDERABLES Final Result [facility] [address] [facility] [place] [address] from Last 3 Months or Most Recently Relevant to Health Maintenance Insurance IDPA [place]IC[place] [address] [facility] MED[facility] Care Teams Dental Associate Relationship Specialty Start Date End Date Franco Galloway MD [address] [address] PCP - General Family Medicine 09/24/22
--- OUTSIDE RECORDS SUMMARY | 2024-12-29 09:47 | XMS_ITS | Clinical Summary ---
Author Organization [facility] Address [address] [place] [address] Care Team Providers Care Ground School Instructor Name Role Phone Unavailable Primary Care Provider Unavailabl e Source Comments [facility],non-owned Affiliates and Associated Physician Practices is amultiple site organization consisting of ambulatory clinics and hospital sitesin [place], [place], [place] and [place]. This disclosure is being madepursuant to the Care Everywhere program and may not contain all information available regarding this patient. 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
--- OUTSIDE RECORDS SUMMARY | 2024-12-29 09:47 | XMS_ITS | Encounter Summary ---
Author Organization 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
--- OUTSIDE RECORDS SUMMARY | 2024-12-29 09:47 | XMS_ITS | Referral Summary ---
Author Organization [facility] [address] Address [address] [place] [address] Care Team Providers Care Biology Instructor Name Role Phone Franco Galloway MD Primary [...] compared to current spec rx. 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 Address: [address] [address] [place] [address] [facility] MEDIC[facility] Care Teams Biology Instructor Relationship Specialty Start Date End Date Franco Galloway MD [address] [place] [address] PCP - General Family Medicine 09/24/22
--- OUTSIDE RECORDS SUMMARY | 2024-12-29 09:47 | XMS_ITS | Encounter Summary ---
Author Organization [facility] Address [address] [place] [address] Care Team Providers Care Geological Survey Field Assistant Name Role Phone Unavailable Primary Care Provider Unavailabl e Encounter Details Date Type Department Care Team (Late st Contact Info) Description 11/20/2000 Outpatient Historical [facility] Department of Peds at [address] [address] Christina Chowdhury MD [facility] 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
--- NOTE | 2024-12-29 09:48 | ED.GENADULT ---
HPI - General Adult General Chief complaint: Upper Respiratory Infection Stated complaint: throat Time Seen by Provider: 12/29/24 09:42 Source: patient Mode of arrival: ambulatory Limitations: no limitations History of Present Illness HPI narrative: patient is a 24-year-old male with significant past medical history that presents today with URI symptoms. Patient says have cough, congestion, rhinorrhea for the last 3 days. He says he also has a sore throat and feels that his throat was closing in on. He denies any nausea vomiting and TORRI other symptoms. Denies any fevers. Onset (ago): minute(s) Location: face ( Bilateral ears) Severity: moderate Severity scale (1-10): 5 Quality: aching Pain Consistency: constant Relieving factors: none Exacerbating factors: none Associated symptoms: cough Treatments prior to arrival: none Related Data Allergies Allergy/AdvReac Type Severity Reaction Status Date / Time ketorolac (From Toradol) Allergy Mild Unknown Verified 12/29/24 09:39 Penicillins Allergy Mild Unknown Verified 12/29/24 09:39 prednisolone Allergy Mild Unknown Verified 12/29/24 09:39 Review of Systems Review of Systems: All systems reviewed & are unremarkable except as noted in HPI and below Constitutional: Constitutional: Reports as per HPI Eyes: Eyes: Reports as per HPI ENT: Reports as per HPI Comments: bilateral otitis media Cardiovascular: Cardiovascular: Reports no additional cardiovascular complaints Respiratory: Respiratory: Reports no additional respiratory complaints Gastrointestinal: Gastrointestinal: Reports no additional gastrointestinal complaints Genitourinary: Genitourinary: Reports no additional male genitourinary complaints Musculoskeletal: Musculoskeletal: Reports no additional musculoskeletal complaints Integumentary/Breasts: Skin/Breast: Reports system reviewed and no additional complaints, except as docu Neurologic: Reports system reviewed and no additional complaints, except as documented Psychiatric: Psychiatric: Reports no additional psychiatric complaints Endocrine: Endocrine: Reports no additional endocrine complaints Hematologic/Lymphatic: Hematologic/Lymphatic: Reports no additional hematologic/lymphatic complaints Allergic/Immunologic: Allergic/Immunologic: Reports no additional allergic/immunologic complaints [facility] Past Medical History Medical History Patient denies medical problems Exam Const: General: healthy appearing Nutritional Appearance: well nourished Orientation/consciousness: patient oriented x3 HENMT: Head: normal to inspection Ears: Abnormal EAC present and TM abnormal Face/Nose/Sinus: Normal external nose present Face and sinus: normal facial exam Mouth: Yes Normal oral and palatal mucosa present Teeth and gingiva: dentition normal Other: erythematous posterior oropharynx, bilateral otitis media Eyes: Conjunctivae: conjunctivae normal Pupils: Equal, round and reactive pupils present EOM: EOMs intact bilaterally Neck: Neck: normal visual inspection Chest: Chest palpation & inspection: normal inspection of the chest Resp: Effort & Inspection: normal respiratory effort Auscultation: clear to auscultation bilaterally Cardio: Rate: regular rate Rhythm: regular rhythm Heart sounds: Murmur heart sound present GI: GI Palp: Yes Soft to palpation Urinary Catheter: Urinary Catheter: patent and draining Back/Spine/Pelvis: Back: no CVA tenderness Cervical Spine: collar present Skin: General skin exam: normal color Rashes: no rashes Wounds: no wounds Neuro: General: patient oriented x3 Cranial nerves: Yes Nystagmus not present Speech: normal speech Extrem: General: normal to inspection Psych: Mental Status: mental status grossly normal Affect: normal affect Attitude: cooperative Course Vital Signs Vital signs: Vital Signs Temperature 95.4 F L 12/29/24 09:35 Pulse Rate 108 H 12/29/24 09:35 Respiratory Rate 18 12/29/24 09:35 Blood Pressure 155/87 H 12/29/24 09:35 Pulse Oximetry 96 12/29/24 09:35 Oxygen Delivery Room Air 12/29/24 09:35 Temperature 95.4 F L 12/29/24 09:35 Pulse Rate 108 H 12/29/24 09:35 Respiratory Rate 18 12/29/24 09:35 Blood Pressure 155/87 H 12/29/24 09:35 Pulse Oximetry 96 12/29/24 09:35 Oxygen Delivery Room Air 12/29/24 09:35 Medical Decision Making [facility] Narrative Medical decision making narrative: patient is describing URI symptoms. Upon further inspection and physical examination the he does have bilateral otitis media. His large has stone. I treated this with cefdinir. This is the next best treatment and has less than 3% reactivity with penicillin. Differential Diagnosis Differential Diagnosis: Bilateral otitis media Medical Records Medical records reviewed: Yes I reviewed the external patient's medical records. Vital Signs Vital Signs: Vital Signs Temperature 95.4 F L 12/29/24 09:35 Pulse Rate 108 H 12/29/24 09:35 Respiratory Rate 18 12/29/24 09:35 Blood Pressure 155/87 H 12/29/24 09:35 Pulse Oximetry 96 12/29/24 09:35 Oxygen Delivery Room Air 12/29/24 09:35 Temperature 95.4 F L 12/29/24 09:35 Pulse Rate 108 H 12/29/24 09:35 Respiratory Rate 18 12/29/24 09:35 Blood Pressure 155/87 H 12/29/24 09:35 Pulse Oximetry 96 12/29/24 09:35 Oxygen Delivery Room Air 12/29/24 09:35 Lab Data Lab results reviewed: Yes I reviewed the patient's lab results. Discharge Plan Discharge Clinical Impression: Otitis media, Upper respiratory infection Patient Disposition: Home Condition: Stable Instructions: Antibiotic Form, Ear Infection (ED) Patient Language: Emirati Prescriptions: New cefdinir 300 mg capsule 300 mg PO Q12H Qty: 20 0RF No Action orphenadrine citrate 100 mg tablet extended release 100 mg PO BID PRN (Reason: pain) Qty: 20 0RF amoxicillin-pot clavulanate [Augmentin] 500-125 mg tablet 1 tablet PO TID Qty: 30 0RF Follow-up/Referrals: UNKNOWN,DOCTOR [Primary Care Provider] - Time of Disposition: :
[2024-12-29] MEDS: CEFDINIR 300 MG CAPSULE PO (10:07)
== END 2024-12-29 10:12 | disposition home or self-care (01) ==
PROVIDERS: Emergency Provider Family Medicine
DX: J06.9 Acute upper respiratory infection, unspecified (principal); H66.93 Otitis media, unspecified, bilateral
CPT/HCPCS: 99283; A9270

== ENCOUNTER 2025-02-03 12:54 | Emergency (ER) | payer OTHER, SELFPAY ==
[2025-02-03 12:55] VITALS: BP 139/81; PULSE 87; RESP 16; TEMP 36.5; O2SAT 94
[2025-02-03 14:04] VITALS: BP 129/85; PULSE 87; RESP 18; TEMP 36.7; O2SAT 95
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
== END 2025-02-03 14:05 | disposition home or self-care (01) ==
LOC: CHSED 14:06
PROVIDERS: Emergency Provider Emergency Medicine; PCP Family Medicine
DX: M54.50 Low back pain, unspecified (principal)
CPT/HCPCS: 99283

== ENCOUNTER 2025-02-22 09:40 | Emergency (ER) | payer OTHER, SELFPAY ==
[2025-02-22 09:41] VITALS: BP 131/89; PULSE 97; RESP 18; TEMP 36.7; O2SAT 93
--- OUTSIDE RECORDS SUMMARY | 2025-02-22 09:44 | XMS_ITS | Referral Summary ---
Author Organization [facility] [place] [address] Address [address] [place] [address] Care Team Providers Care Digital Community Manager Name Role Phone Franco Galloway MD Primary [...] compared to current spec rx. 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
--- OUTSIDE RECORDS SUMMARY | 2025-02-22 09:44 | XMS_ITS | Clinical Summary ---
Author Organization [facility] Address [address] [place] [address] Care Team Providers Care Barkeeper Name Role Phone Unavailable Primary Care Provider Unavailabl e Source Comments [facility],non-owned Affiliates and Associated Physician Practices is amultiple site organization consisting of ambulatory clinics and hospital sitesin [place], [place], [place] and [place]. This disclosure is being madepursuant to the Care Everywhere program and may not contain all information available regarding this patient. 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
--- OUTSIDE RECORDS SUMMARY | 2025-02-22 09:44 | XMS_ITS | Clinical Summary ---
Author Organization [facility] [place] [address] Address [address] [place] [address] Care Team Providers Care Ecommerce Project Manager Name Role Phone Franco Galloway MD [...] to current spec rx. 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 Current interpretive data was last revised on 19. Hep B core IgM Nonreactive Nonreactive [facility] Comment: Interpretive Data If HepB Core IgM Ab is reported as Equivocal, a new sample should be drawn in two weeks for testing. Current interpretive data was last revised on 19. Hep C Ab Nonreactive Nonreactive [facility] Comment: Interpretive Data Nonreactive: Antibodies to HCV [...] last revised on 2019. HepBsAg Nonreactive Nonreactive [facility] Blood 12/04/2022 5:49 PM CDT 12/04/2022 8:29 PM CDT us Franco Galloway MD LAB MICROBIOLOGY - GENERAL ORDERABLES Final Result [facility] [address] [facility] [facility] [place] [address] from Last 3 Months or Most Recently Relevant to Health Maintenance Insurance [place] [address] [place] [address] [facility] MEDICARE Care Teams Ecommerce Project Manager Relationship Specialty Start Date End Date Franco Galloway MD [address] [address] PCP - General Family Medicine 09/24/22
--- NOTE | 2025-02-22 09:49 | PC.NURSE ---
covid culture sent to lab
--- NOTE | 2025-02-22 10:08 | ED_ITS ---
HPI - URI/Sore Throat General Chief Complaint: Nausea/Vomiting/Diarrhea Stated Complaint: hot flashes Time Seen by Provider: 02/22/25 09:43 Source: patient Mode of arrival: ambulatory Limitations: no limitations History of Present Illness HPI Narrative: 24 years old white male drove himself to the emergency room from home complaining of / cold feeling over the last 24 hours. Slight dry cough, denies any runny nose or sneezing or chest pain or shortness of breath. Feels better on Tylenol. Associated with intermittent nausea and vomiting. He denies abdominal pain or chest pain or shortness of breath Stepdaughter who is 12 years old had similar symptoms and was diagnosed of flu- like symptoms. Related Data Allergies Allergy/AdvReac Type Severity Reaction Status Date / Time ketorolac (From Toradol) Allergy Mild Unknown Verified 02/22/25 09:48 Penicillins Allergy Mild Unknown Verified 02/22/25 09:48 prednisolone Allergy Mild Unknown Verified 02/22/25 09:48 Review of Systems Review of Systems: All systems reviewed & are unremarkable except as noted in HPI and below PMFSH Past Medical History Medical History Patient denies medical problems Exam Narrative: General appearance: Well-developed, well-nourished Skin: Normal color Head: Normocephalic, nontraumatic Eyes: Clear conjunctiva ENT: Oropharynx normal, ears normal, nose normal Neck: Supple, nontender Chest and respiratory: Airway patent, no respiratory distress, no accessory muscle use Heart: Regular rate/rhythm Abdomen: Soft, nontender, no organomegaly, quiet bowel sounds Vascular: Normal peripheral pulses, normal capillary refill. Musculoskeletal: Normal range of motion, nontender back Neurologic: Alert and oriented ?3, MULTI LINE CLAIMS ADJUSTER is normal as tested, no gross motor deficit Course Vital Signs Vital signs: Vital Signs Temperature 36.7 C 02/22/25 09:41 Pulse Rate 97 02/22/25 09:41 Respiratory Rate 18 02/22/25 09:41 Blood Pressure 131/89 02/22/25 09:41 Pulse Oximetry 93 02/22/25 09:41 Oxygen Delivery Room Air 02/22/25 09:41 Temperature 36.7 C 02/22/25 09:41 Pulse Rate 97 02/22/25 09:41 Respiratory Rate 18 02/22/25 09:41 Blood Pressure 131/89 02/22/25 09:41 Pulse Oximetry 93 02/22/25 09:41 Oxygen Delivery Room Air 02/22/25 09:41 MDM - URI/Sore Throat MDM Narrative Medical decision making narrative: Patient tested negative for COVID, flu and RSV. Viral syndrome is my concern. Medical Records Attestation: I reviewed the patient's medical records. Lab Data Attestation: I reviewed the patient's lab results. Labs: Lab Results 02/22/25 Range/Units 09:57 Influenza A (RT-PCR) Negative (Negative) Influenza B (RT-PCR) Negative (Negative) SARS-CoV-2 RNA (RT-PCR) Negative (Negative) Critical Care Time Critical Care Time Critical Care Time: No Discharge Plan Discharge Clinical Impression: Viral upper respiratory tract infection Patient Disposition: Home Condition: Stable Instructions: Viral Syndrome (ED) Additional Instructions: Return if symptoms are worsening , call your family physician for appointment, take Tylenol, ibuprofen as as needed for aches and pain, continue home medicati ons. Patient Language: Bengali Prescriptions: New ondansetron 4 mg tablet,disintegrating 2 mg PO Q4H PRN (Reason: nausea and vomiting) Qty: 10 0RF Follow-up/Referrals: Jovan Chang MD [Primary Care Provider] - Stand Alone Forms: Work/School Release IP
--- OUTSIDE RECORDS SUMMARY | 2025-02-22 10:17 | XMS_ITS | Referral Summary ---
Author Organization [facility] [place] [address] Address [address] [place] [address] Care Team Providers Care Back Tender Cloth Printing Name Role Phone Franco Galloway MD Primary [...] compared to current spec rx. 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
--- OUTSIDE RECORDS SUMMARY | 2025-02-22 10:17 | XMS_ITS | Encounter Summary ---
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
--- OUTSIDE RECORDS SUMMARY | 2025-02-22 10:17 | XMS_ITS | Clinical Summary ---
Author Organization [facility] [place] [address] Address [address] [place] [address] Care Team Providers Care Linoleum Tile Layer Name Role Phone Franco Galloway MD Primary [...] compared to current spec rx. 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 Current interpretive data was last revised on 19. Hep B core IgM Nonreactive Nonreactive [facility] Comment: Interpretive Data If HepB Core IgM Ab is reported as Equivocal, a new sample should be drawn in two weeks for testing. Current interpretive data was last revised on 19. Hep C Ab Nonreactive Nonreactive [facility] Comment: Interpretive Data Nonreactive: Antibodies to [...] last revised on 2019. HepBsAg Nonreactive Nonreactive [facility] Blood 12/04/2022 5:49 PM CDT 12/04/2022 8:29 PM CDT us Franco Galloway MD LAB MICROBIOLOGY - GENERAL ORDERABLES Final Result [facility] [address] [facility] Department [place] [address] from Last 3 Months or Most Recently Relevant to Health Maintenance Insurance IDPA [place] [address] [place] [address] [facility] MEDICARE Care Teams Linoleum Tile Layer Relationship Specialty Start Date End Date Franco Galloway MD [address] [address] PCP - General Family Medicine 09/24/22
--- OUTSIDE RECORDS SUMMARY | 2025-02-22 10:17 | XMS_ITS | Clinical Summary ---
Author Organization [facility] Address [address] [place] [address] Care Team Providers Care Dried Yeast Supervisor Name Role Phone Unavailable Primary Care Provider Unavailabl e Source Comments [facility],non-owned Affiliates and Associated Physician Practices is amultiple site organization consisting of ambulatory clinics and hospital sitesin [place], [place] and [place]. This disclosure is being madepursuant to the Care Everywhere program and may not contain all information available regarding this patient. 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
--- OUTSIDE RECORDS SUMMARY | 2025-02-22 10:17 | XMS_ITS | Clinical Summary ---
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
[2025-02-22 10:38] LABS: Influenza A QL RT-PCR Negative (Negative); Influenza B QL RT-PCR Negative (Negative); SARS-CoV-2 RNA PCR Negative (Negative)
== END 2025-02-22 11:00 | disposition home or self-care (01) ==
PROVIDERS: Emergency Provider Emergency Medicine; PCP Family Medicine
DX: J06.9 Acute upper respiratory infection, unspecified (principal); Z20.822 Contact with and (suspected) exposure to COVID-19
CPT/HCPCS: 87636; 99283

== ENCOUNTER 2025-03-11 21:05 | Emergency (ER) | payer OTHER, SELFPAY ==
[2025-03-11 21:06] VITALS: BP 159/93; PULSE 84; RESP 14; TEMP 36.6; O2SAT 99
--- OUTSIDE RECORDS SUMMARY | 2025-03-11 21:08 | XMS_ITS | Clinical Summary ---
Author Organization [facility] Address [address] [place] [address] Care Team Providers Care Golf Cart Attendant Name Role Phone Unavailable Primary Care Provider Unavailabl e Source Comments [facility],non-owned Affiliates and Associated Physician Practices is amultiple site organization consisting of ambulatory clinics and hospital sitesin [place], [place], [place] and [place]. This disclosure is being madepursuant to the Care Everywhere program and may not contain all information available regarding this patient. 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
--- OUTSIDE RECORDS SUMMARY | 2025-03-11 21:08 | XMS_ITS | Encounter Summary ---
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
--- OUTSIDE RECORDS SUMMARY | 2025-03-11 21:08 | XMS_ITS | Clinical Summary ---
Author Organization [facility] [address] Address [address] [place] [address] Care Team Providers Care Tool Repair Technician Name Role Phone Franco Galloway MD Primary [...] compared to current spec rx. 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 Current interpretive data was last revised on 19. Hep B core IgM Nonreactive Nonreactive [facility] Comment: Interpretive Data If HepB Core IgM Ab is reported as Equivocal, a new sample should be drawn in two weeks for testing. Current interpretive data was last revised on 19. Hep C Ab Nonreactive Nonreactive [facility] Comment: Interpretive Data Nonreactive: Antibodies [...] last revised on 2019. HepBsAg Nonreactive Nonreactive [facility] Blood 12/04/2022 5:49 PM CDT 12/04/2022 8:29 PM CDT us Franco Galloway MD LAB MICROBIOLOGY - GENERAL ORDERABLES Final Result [facility] [address] [place] [address] from Last 3 Months or Most Recently Relevant to Health Maintenance Insurance IDPA MEDICARE [facility] Address: [address] [address] [place] [address] [place] [address] [facility] MEDICARE Care Teams Tool Repair Technician Relationship Specialty Start Date End Date Franco Galloway MD [address] [address] PCP - General Family Medicine 09/24/22
--- OUTSIDE RECORDS SUMMARY | 2025-03-11 21:08 | XMS_ITS | Referral Summary ---
Author Organization [facility] [address] Address [address] [place] [address] Care Team Providers Care Technical Support Technician Name Role Phone Franco Galloway MD [...] to current spec rx. 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 Address: [address] [address] [place] [address] [facility] MEDICARE Care Teams Technical Support Technician Relationship Specialty Start Date End Date Franco Galloway MD [address] [place] [address] PCP - General Family Medicine 09/24/22
--- OUTSIDE RECORDS SUMMARY | 2025-03-11 21:08 | XMS_ITS | Clinical Summary ---
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
--- NOTE | 2025-03-11 21:15 | ED_ITS ---
HPI - Extremity Injury (Lower) General Chief Complaint: Extremity Injury, Lower Stated Complaint: Infected R Big Toe Time Seen by Provider: 03/11/25 21:14 Source: patient Mode of arrival: ambulatory Limitations: no limitations History of Present Illness HPI Narrative: PATIENT PRESENTS WITH LEFT BIG TOE SWELLING, RED, AND PAIN STARTED 1 MONTH AGO, AFTER TRYING TO DIG AND CUT HIS INGROWING TOENAILS. GOT WORSE OVER THE LAST 3 DAYS Related Data Allergies Allergy/AdvReac Type Severity Reaction Status Date / Time ketorolac (From Toradol) Allergy Mild Unknown Verified 02/22/25 09:48 Penicillins Allergy Mild Unknown Verified 02/22/25 09:48 prednisolone Allergy Mild Unknown Verified 02/22/25 09:48 Review of Systems Review of Systems: All systems reviewed & are unremarkable except as noted in HPI and below PMFSH Past Medical History Medical History Patient denies medical problems Exam 2 Narrative: GENERAL APPEARANCE: WELL-DEVELOPED, WELL-NOURISHED SKIN: NORMAL COLOR VASCULAR: NORMAL PERIPHERAL PULSES, NORMAL CAPILLARY REFILL. MUSCULOSKELETAL: LEFT BIG TOE SHOWED DIFFUSE SWELLING, ERYTHEMA, WARMTH, DIFFUSE TENDERNESS, NO DISCHARGE NEUROLOGIC: ALERT AND ORIENTED ?3, Course Vital Signs Vital signs: Vital Signs Temperature 36.6 C 03/11/25 21:06 Pulse Rate 84 03/11/25 21:06 Respiratory Rate 14 03/11/25 21:06 Blood Pressure 159/93 H 03/11/25 21:06 Pulse Oximetry 99 03/11/25 21:06 Oxygen Delivery Room Air 03/11/25 21:06 Temperature 36.6 C 03/11/25 21:06 Pulse Rate 84 03/11/25 21:06 Respiratory Rate 14 03/11/25 21:06 Blood Pressure 159/93 H 03/11/25 21:06 Pulse Oximetry 99 03/11/25 21:06 Oxygen Delivery Room Air 03/11/25 21:06 Critical Care Time Critical Care Time Critical Care Time: No Discharge Plan Discharge Clinical Impression: Paronychia due to ingrown nail Patient Disposition: Home Condition: Stable Instructions: Antibiotic Form, Paronychia (ED) Additional Instructions: RETURN IF SYMPTOMS ARE WORSENING , CALL YOUR FAMILY PHYSICIAN FOR APPOINTMENT, TAKE TYLENOL, IBUPROFEN NEEDED FOR ACHES AND PAIN, CONTINUE HOME MEDICATIONS. KEEP FOOT ELEVATED, AVOID TIGHT SHOES, WARM WATER SOAKS Patient Language: Tanzanian Prescriptions: New clindamycin HCl [Cleocin HCl] 150 mg capsule 450 mg PO Q8H Qty: 63 0RF No Action ondansetron 4 mg tablet,disintegrating 2 mg PO Q4H PRN (Reason: nausea and vomiting) Qty: 10 0RF Follow-up/Referrals: Jovan Chang MD [Primary Care Provider] - Stand Alone Forms: Work/School Release IP
[2025-03-11] MEDS: CLINDAMYCIN HCL 150 MG CAP 450 MG PO (21:28)
--- OUTSIDE RECORDS SUMMARY | 2025-03-11 21:48 | XMS_ITS | Clinical Summary ---
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
--- OUTSIDE RECORDS SUMMARY | 2025-03-11 21:48 | XMS_ITS | Encounter Summary ---
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
--- OUTSIDE RECORDS SUMMARY | 2025-03-11 21:49 | XMS_ITS | Clinical Summary ---
Author Organization [facility] [address] Address [address] [place] [address] Care Team Providers Care Merchandising Director Name Role Phone Franco Galloway MD Primary [...] compared to current spec rx. 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 Current interpretive data was last revised on 19. Hep B core IgM Nonreactive Nonreactive [facility] Comment: Interpretive Data If HepB Core IgM Ab is reported as Equivocal, a new sample should be drawn in two weeks for testing. Current interpretive data was last revised on 19. Hep C Ab Nonreactive Nonreactive [facility] Comment: Interpretive Data Nonreactive: Antibodies to [...] last revised on 2019. HepBsAg Nonreactive Nonreactive [facility] Blood 12/04/2022 5:49 PM CDT 12/04/2022 8:29 PM CDT us Franco Galloway MD LAB MICROBIOLOGY - GENERAL ORDERABLES Final Result [facility] [address] [facility] Department [place] [address] from Last 3 Months or Most Recently Relevant to Health Maintenance Insurance ID[place] [address] [place] [address] [facility] MEDICARE Care Teams Merchandising Director Relationship Specialty Start Date End Date Franco Galloway MD [address] [address] PCP - General Family Medicine 09/24/22
--- OUTSIDE RECORDS SUMMARY | 2025-03-11 21:50 | XMS_ITS | Clinical Summary ---
Author Organization [facility] Address [address] [place] [address] Care Team Providers Care Stack Supervisor Name Role Phone Unavailable Primary Care Provider Unavailabl e Source Comments [facility],non-owned Affiliates and Associated Physician Practices is amultiple site organization consisting of ambulatory clinics and hospital sitesin [place], [place], [place] and [place]. This disclosure is being madepursuant to the Care Everywhere program and may not contain all information available regarding this patient. 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
== END 2025-03-11 21:47 | disposition home or self-care (01) ==
LOC: CHSED 21:46
PROVIDERS: Emergency Provider Emergency Medicine; PCP Family Medicine
DX: L03.032 Cellulitis of left toe (principal)
CPT/HCPCS: 99283

== ENCOUNTER 2025-05-14 17:35 | Emergency (ER) | payer OTHER, SELFPAY ==
[2025-05-14 17:35] VITALS: PULSE 84; RESP 18; TEMP 36.5; O2SAT 98
--- OUTSIDE RECORDS SUMMARY | 2025-05-14 17:37 | XMS_ITS | Clinical Summary ---
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
--- OUTSIDE RECORDS SUMMARY | 2025-05-14 17:37 | XMS_ITS | Clinical Summary ---
Author Organization [facility] [address] Address [address] [place] [address] Care Team Providers Care Car Repossessor Name Role Phone Franco Galloway MD Primary [...] compared to current spec rx. 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 Current interpretive data was last revised on 19. Hep B core IgM Nonreactive Nonreactive [facility] Comment: Interpretive Data If HepB Core IgM Ab is reported as Equivocal, a new sample should be drawn in two weeks for testing. Current interpretive data was last revised on 19. Hep C Ab Nonreactive Nonreactive [facility] Comment: Interpretive Data Nonreactive: Antibodies to HCV [...] last revised on 2019. HepBsAg Nonreactive Nonreactive [facility] Blood 12/04/2022 5:49 PM CDT 12/04/2022 8:29 PM CDT us Franco Galloway MD LAB MICROBIOLOGY - GENERAL ORDERABLES Final Result [facility] [address] [facility] Department [place] [address] from Last 3 Months or Most Recently Relevant to Health Maintenance Insurance IDPA MEDICARE [facility] Address: [address] [address] [place] [address] [place] [address] [facility] MEDICARE Care Teams Car Repossessor Relationship Specialty Start Date End Date Franco Galloway MD [address] [address] PCP - General Family Medicine 09/24/22
--- OUTSIDE RECORDS SUMMARY | 2025-05-14 17:37 | XMS_ITS | Encounter Summary ---
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
[2025-05-14 17:43] VITALS: BP 156/98
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
--- OUTSIDE RECORDS SUMMARY | 2025-05-14 18:12 | XMS_ITS | Clinical Summary ---
Author Organization [facility] [place] [address] Address [address] [place] [address] Care Team Providers Care Party Host/Hostess Name Role Phone Franco Galloway MD Primary [...] to current spec rx. 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 Current interpretive data was last revised on 19. Hep B core IgM Nonreactive Nonreactive [facility] Comment: Interpretive Data If HepB Core IgM Ab is reported as Equivocal, a new sample should be drawn in two weeks for testing. Current interpretive data was last revised on 19. Hep C Ab Nonreactive Nonreactive [facility] Comment: Interpretive Data Nonreactive: Antibodies [...] last revised on 2019. HepBsAg Nonreactive Nonreactive [facility] Blood 12/04/2022 5:49 PM CDT 12/04/2022 8:29 PM CDT us Franco Galloway MD LAB MICROBIOLOGY - GENERAL ORDERABLES Final Result [facility] [address] [facility] [place] [address] from Last 3 Months or Most Recently Relevant to Health Maintenance Insurance IDPA MEDICARE [facility] Address: [address] [address] [place] [address] [place] [address] [facility] MEDICARE Care Teams Party Host/Hostess Relationship Specialty Start Date End Date Franco Galloway MD [address] [address] PCP - General Family Medicine 09/24/22
--- OUTSIDE RECORDS SUMMARY | 2025-05-14 18:12 | XMS_ITS | Clinical Summary ---
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
--- OUTSIDE RECORDS SUMMARY | 2025-05-14 18:12 | XMS_ITS | Encounter Summary ---
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
[2025-05-14 18:18] VITALS: BP 156/98; PULSE 84; RESP 18; TEMP 36.5; O2SAT 98
--- NOTE | 2025-05-14 19:48 | PC.NURSE ---
PATIENT CALLED REQUESTING A WORK NOTE. SPOKE WITH DR JACKSON. OK TO WRITE UP A WORK NOTE FOR PATIENT. HE WILL COME BY IN THE AM (05/15) TO PICK IT UP
== END 2025-05-14 18:18 | disposition home or self-care (01) ==
PROVIDERS: Emergency Provider Emergency Medicine; PCP Family Medicine
DX: H72.92 Unspecified perforation of tympanic membrane, left ear (principal); H60.501 Unspecified acute noninfective otitis externa, right ear
CPT/HCPCS: 99283

== ENCOUNTER 2025-05-26 17:01 | Emergency (ER) | payer OTHER, SELFPAY ==
[2025-05-26 17:04] VITALS: BP 143/95; PULSE 71; RESP 18; TEMP 36.7; O2SAT 97
--- NOTE | 2025-05-26 17:24 | ED.EXTPRO ---
HPI - Extremity Problem General Chief complaint: Extremity Problem,Nontraumatic Stated complaint: left toe pain Time Seen by Provider: 05/26/25 17:23 Source: patient Mode of arrival: ambulatory Limitations: no limitations History of Present Illness HPI Narrative: Patient is a 24-year-old male with a left great toe redness and irritation. This has been going on for about a month. Patient said he has ingrown toenails. MD Complaint: extremity pain (Left great toe) Onset (ago): month(s) (1) Pain Consistency: constant Location: left, lower extremity and toe (Great toe) Severity scale (1-10): 4 Quality: sharp Radiation: none Relieving factors: nothing Exacerbating factors: range of motion, weight bearing, walking and palpation Associated symptoms: denies other symptoms Context: other (Patient has history of ingrown toenails and specifically the left great toe on either side with localized redness complaint today) Related Data Allergies Allergy/AdvReac Type Severity Reaction Status Date / Time cefuroxime (From Ceftin) Allergy Intermediate hives Verified 05/26/25 17:29 ketorolac (From Toradol) Allergy Mild Unknown Verified 05/26/25 17:29 Penicillins Allergy Mild Unknown Verified 05/26/25 17:29 prednisolone Allergy Mild Unknown Verified 05/26/25 17:29 Review of Systems Review of Systems: All systems reviewed & are unremarkable except as noted in HPI and below Constitutional: Constitutional: Reports no additional constitutional complaints Eyes: Eyes: Reports no additional eye complaints ENT: Reports system reviewed and no additional complaints, except as documented Cardiovascular: Cardiovascular: Reports no additional cardiovascular complaints Respiratory: Respiratory: Reports no additional respiratory complaints Gastrointestinal: Gastrointestinal: Reports no additional gastrointestinal complaints Genitourinary: Genitourinary: Reports no additional male genitourinary complaints Musculoskeletal: Musculoskeletal: Reports no additional musculoskeletal complaints Integumentary/Breasts: Skin/Breast: Reports system reviewed and no additional complaints, except as docu Neurologic: Reports system reviewed and no additional complaints, except as documented Psychiatric: Psychiatric: Reports no additional psychiatric complaints Endocrine: Endocrine: Reports no additional endocrine complaints Hematologic/Lymphatic: Hematologic/Lymphatic: Reports no additional hematologic/lymphatic complaints Allergic/Immunologic: Allergic/Immunologic: Reports no additional allergic/immunologic complaints PMFSH Past Medical History Medical History Patient denies medical problems Exam Const: General: healthy appearing Nutritional Appearance: well nourished Orientation/consciousness: patient oriented x3 HENMT: Head: normal to inspection Ears: external ears normal Face/Nose/Sinus: Normal external nose present Eyes: Conjunctivae: conjunctivae normal Pupils: Equal, round and reactive pupils present EOM: EOMs intact bilaterally Neck: Neck: normal visual inspection Chest: Chest palpation & inspection: normal inspection of the chest Resp: Effort & Inspection: normal respiratory effort and not labored Auscultation: clear to auscultation bilaterally and no crackles Cardio: Rate: regular rate Rhythm: regular rhythm Heart sounds: no murmurs GI: Inspection: non-distended GI Palp: Yes Soft to palpation and No Tenderness to palpation present (GI) Auscultation: normal bowel sounds : General: Yes bladder normal to palpation Back/Spine/Pelvis: Back: no CVA tenderness Skin: General skin exam: normal color Rashes: no rashes Wounds: wound noted Other: Left great toe nail ingrown on either side medially and laterally with extra tissue/proud tissue as well as the great toe is red erythematous with tenderness Neuro: General: patient oriented x3, moves all extremities and no meningeal signs Extrem: General: normal to inspection, no clubbing, cyanosis or edema and no pedal edema Psych: Mental Status: mental status grossly normal Affect: normal affect Attitude: cooperative Course Vital Signs Vital signs: Vital Signs Temperature 36.7 C 05/26/25 17:04 Pulse Rate 71 05/26/25 17:04 Respiratory Rate 18 05/26/25 17:04 Blood Pressure 143/95 H 05/26/25 17:04 Pulse Oximetry 97 05/26/25 17:04 Oxygen Delivery Room Air 05/26/25 17:04 Temperature 36.7 C 05/26/25 17:04 Pulse Rate 71 05/26/25 17:04 Respiratory Rate 18 05/26/25 17:04 Blood Pressure 143/95 H 05/26/25 17:04 Pulse Oximetry 97 05/26/25 17:04 Oxygen Delivery Room Air 05/26/25 17:04 MDM - Extremity (Nontraumatic) MDM Narrative Medical decision making narrative: Patient is a 24-year-old male with left great toe pain an ingrown toenail. We will not be cutting into the toenail today as there is localized redness and infection of the skin. Patient will need to see a senior applications analyst or similar to have the toenails cut on either side of the great toe on the left (or complete toenail removal) after infection has diminished. Discharge Plan Discharge Clinical Impression: Ingrown left big toenail Patient Disposition: Home Condition: Stable Instructions: Antibiotic Form Additional Instructions: Please follow-up with a specialist such as a senior applications analyst did do foot repair of your ingrown toenail in the next week. Patient Language: Tajik Prescriptions: New sulfamethoxazole-trimethoprim [Bactrim DS] 800-160 mg tablet 1 tablet PO BID 10 Days Qty: 20 0RF Follow-up/Referrals: Jovan Chang MD [Primary Care Provider, Internal Medicine] Time of Disposition: 17:33
[2025-05-26] MEDS: SULFAMETHOXAZOLE/TRIMETHOPRIM 800/160 MG DS TABLET 1 TAB PO (17:40)
--- OUTSIDE RECORDS SUMMARY | 2025-05-26 17:53 | XMS_ITS | Encounter Summary ---
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
--- OUTSIDE RECORDS SUMMARY | 2025-05-26 17:54 | XMS_ITS | Clinical Summary ---
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
--- OUTSIDE RECORDS SUMMARY | 2025-05-26 17:54 | XMS_ITS | Clinical Summary ---
Author Organization [facility] [place] [address] Address [address] [place] [address] Care Team Providers Care Natural Gas Trader Name Role Phone Franco Galloway MD Primary [...] compared to current spec rx. 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 Current interpretive data was last revised on 19. Hep B core IgM Nonreactive Nonreactive [facility] Comment: Interpretive Data If HepB Core IgM Ab is reported as Equivocal, a new sample should be drawn in two weeks for testing. Current interpretive data was last revised on 19. Hep C Ab Nonreactive Nonreactive [facility] Comment: Interpretive Data Nonreactive: Antibodies to [...] last revised on 2019. HepBsAg Nonreactive Nonreactive [facility] Blood 12/04/2022 5:49 PM CDT 12/04/2022 8:29 PM CDT us Franco Galloway MD LAB MICROBIOLOGY - GENERAL ORDERABLES Final Result [facility] [address] [facility] Department [place] [address] from Last 3 Months or Most Recently Relevant to Health Maintenance Insurance IDPA MEDICARE [facility] Address: [address] [address] [place] [address] [place] [address] [facility] MEDICARE Care Teams Natural Gas Trader Relationship Specialty Start Date End Date Franco Galloway MD [address] [address] PCP - General Family Medicine 09/24/22
== END 2025-05-26 17:40 | disposition home or self-care (01) ==
LOC: CHSED 17:33
PROVIDERS: Emergency Provider Emergency Medicine; PCP Family Medicine
DX: L60.0 Ingrowing nail (principal)
CPT/HCPCS: 99283; A9270

== ENCOUNTER 2025-07-31 21:51 | Emergency (ER) | payer OTHER, SELFPAY ==
[2025-07-31 21:54] VITALS: BP 165/101; PULSE 80; RESP 16; TEMP 36.4; O2SAT 98
--- OUTSIDE RECORDS SUMMARY | 2025-07-31 21:54 | XMS_ITS | Clinical Summary ---
Author Organization [facility] [place] [address] Address [address] [place] [address] Care Team Providers Care Carpentry Professional Name Role Phone Franco Galloway MD Primary [...] compared to current spec rx. 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 Hep B core IgM Nonreactive Nonreactive [facility] Comment: Interpretive Data If HepB Core IgM Ab is reported as Equivocal, a new sample should be drawn in two weeks for testing. Current interpretive data was last revised on 19. Hep C Ab Nonreactive Nonreactive [facility] Comment: Interpretive Data Nonreactive: Antibodies [...] last revised on 2019. HepBsAg Nonreactive Nonreactive [facility] Blood 12/04/2022 5:49 PM CDT 12/04/2022 8:29 PM CDT us Franco Galloway MD LAB MICROBIOLOGY - GENERAL ORDERABLES Final Result [facility] [address] [facility] Department [place] [address] from Last 3 Months or Most Recently Relevant to Health Maintenance Insurance IDPA [place] [address] [place] [address] [facility] MEDICARE Care Teams Carpentry Professional Relationship Specialty Start Date End Date Franco Galloway MD [address] [address] PCP - General Family Medicine 09/24/22
--- OUTSIDE RECORDS SUMMARY | 2025-07-31 21:54 | XMS_ITS | Clinical Summary ---
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
--- NOTE | 2025-07-31 21:59 | ED.LOWEXIN ---
HPI - Extremity Injury (Lower) General Chief Complaint: Extremity Problem,Nontraumatic Stated Complaint: lower extremity Time Seen by Provider: 07/31/25 21:59 Source: patient Mode of arrival: ambulatory Limitations: no limitations History of Present Illness HPI Narrative: Patient is a 25-year-old male with a left great toe infection. Patient was seen in the emergency room in the past month for the same complaint and was given antibiotics and was told to see a electric stove installer as soon as possible. Patient is waiting until August to get his insurance lined up before he sees a specialist. He is here now with worsening great toe inflammation and pain. He said the antibiotics helped resolve much of it at the time but then it has now gotten bad again with bilateral nail ingrown with localized inflammation and toe cellulitis. complaint: other (No injury but he does have bilateral great toe nail ingrown with localized erythema and cellulitis with pus) Onset (ago): month(s) (One) Type of Injury: other (No injury) Place: home Severity: moderate Severity scale (1-10): 5 Relieving factors: rest Exacerbating factors: weight bearing, movement and palpation Context: other (Patient has worsening left great toenail ingrown inflammation and infection; no diabetes) Associated symptoms: swelling and ambulatory Other symptoms: none Treatments prior to arrival: other (None) Related Data Allergies Allergy/AdvReac Type Severity Reaction Status Date / Time cefuroxime (From Ceftin) Allergy Intermediate hives Verified 07/31/25 22:26 Penicillins Allergy Mild Hives Verified 07/31/25 22:26 prednisolone Allergy Mild Hives Verified 07/31/25 22:26 ketorolac (From Toradol) AdvReac Mild Vomiting Verified 07/31/25 22:26 Review of Systems Review of Systems: All systems reviewed & are unremarkable except as noted in HPI and below Constitutional: Constitutional: Reports no additional constitutional complaints Eyes: Eyes: Reports no additional eye complaints ENT: Reports system reviewed and no additional complaints, except as documented Cardiovascular: Cardiovascular: Reports no additional cardiovascular complaints Respiratory: Respiratory: Reports no additional respiratory complaints Gastrointestinal: Gastrointestinal: Reports no additional gastrointestinal complaints Genitourinary: Genitourinary: Reports no additional male genitourinary complaints Musculoskeletal: Musculoskeletal: Reports no additional musculoskeletal complaints Integumentary/Breasts: Skin/Breast: Reports system reviewed and no additional complaints, except as docu Neurologic: Reports system reviewed and no additional complaints, except as documented Psychiatric: Psychiatric: Reports no additional psychiatric complaints Endocrine: Endocrine: Reports no additional endocrine complaints Hematologic/Lymphatic: Hematologic/Lymphatic: Reports no additional hematologic/lymphatic complaints Allergic/Immunologic: Allergic/Immunologic: Reports no additional allergic/immunologic complaints PMFSH Past Medical History Medical History Perforated left tympanic membrane on examination Patient denies medical problems Social History Social History Smoking status: Never smoker Exam Const: General: healthy appearing Nutritional Appearance: well nourished Orientation/consciousness: patient oriented x3 Limitations: no limitations HENMT: Head: normal to inspection Ears: external ears normal Face/Nose/Sinus: Normal external nose present Eyes: Conjunctivae: conjunctivae normal Pupils: Equal, round and reactive pupils present EOM: EOMs intact bilaterally Neck: Neck: normal visual inspection Chest: Chest palpation & inspection: normal inspection of the chest Resp: Effort & Inspection: normal respiratory effort and not labored Auscultation: clear to auscultation bilaterally and no crackles Cardio: Rate: regular rate Rhythm: regular rhythm Heart sounds: no murmurs GI: Inspection: non-distended GI Palp: Yes Soft to palpation and No Tenderness to palpation present (GI) Auscultation: normal bowel sounds : General: Yes bladder normal to palpation Back/Spine/Pelvis: Back: no CVA tenderness Skin: General skin exam: normal color Rashes: no rashes Wounds: no wounds Neuro: General: patient oriented x3 and moves all extremities Cranial nerves: Yes Nystagmus not present Extrem: General: abnormal to inspection Other: Left great toenail is ingrown into bilateral skin at the distal aspect with localized erythema and pus and swelling; the entire left great toe is swollen and has erythema at this time and tenderness to palpation Psych: Mental Status: mental status grossly normal Affect: normal affect Attitude: cooperative Course Vital Signs Vital signs: Vital Signs Temperature 36.4 C 07/31/25 21:54 Pulse Rate 80 07/31/25 21:54 Respiratory Rate 16 07/31/25 21:54 Blood Pressure 165/101 H 07/31/25 21:54 Pulse Oximetry 98 07/31/25 21:54 Oxygen Delivery Room Air 07/31/25 21:54 Temperature 36.4 C 07/31/25 21:54 Pulse Rate 80 07/31/25 21:54 Respiratory Rate 16 07/31/25 21:54 Blood Pressure 165/101 H 07/31/25 21:54 Pulse Oximetry 98 07/31/25 21:54 Oxygen Delivery Room Air 07/31/25 21:54 MDM MDM Narrative Medical decision making narrative: Patient is a 25-year-old male with a left great toenail ingrown if with recurrent event as he is not been to a electric stove installer. Clindamycin q.i.d.. Podiatry. Differential Diagnosis Differential Diagnosis: Ingrown toenail, cellulitis Discharge Plan Discharge Clinical Impression: Ingrown left greater toenail Patient Disposition: Home Condition: Stable Instructions: Antibiotic Form, Ingrown Nail (ED) Additional Instructions: Please make an appointment with a electric stove installer soon as possible. This area is going to continue getting worse over time. Patient Language: [place] Citizen Prescriptions: New clindamycin HCl [Cleocin HCl] 300 mg capsule 300 mg PO QID 10 Days Qty: 40 0RF Follow-up/Referrals: Jovan Chang MD [Primary Care Provider, Internal Medicine] Time of Disposition: 22:20
[2025-07-31] MEDS: CLINDAMYCIN HCL 150 MG CAP 300 MG PO (22:30)
== END 2025-07-31 22:36 | disposition home or self-care (01) ==
PROVIDERS: Emergency Provider Emergency Medicine; PCP Family Medicine
DX: L60.0 Ingrowing nail (principal)
CPT/HCPCS: 99283